=== PATIENT | male | born 1950 | race Caucasian/White ===

== ENCOUNTER 2017-05-06 19:02 | Emergency (ER) | payer MEDICARE, SELFPAY ==
[2017-05-06 19:02] VITALS: BP 155/96; PULSE 78; RESP 16; TEMP 36.9; O2SAT 95; BMI 32.2
--- NOTE | 2017-05-06 19:05 | RAD_ITS ---
STUDY: X-RAY - RIGHT ANKLE REASON FOR EXAM: Male, 66 years old. Lateral pain TECHNIQUE: 3 view(s) of the ankle. COMPARISON: None. FINDINGS: Normal visualized distal tibia and fibula. Normal medial and lateral malleoli. Normal tibiotalar articulation and ankle mortise. Normal visualized talus. There is spurring of the calcaneus. The visualized subtalar, talonavicular, calcaneocuboid and tarsal articulations are normal. The soft tissue structures are unremarkable. RAD/Ankle min 3 Views IMPRESSION: No evidence for acute fracture or dislocation Electronically Signed: Royer Whelan MD at 20:06 EST , Service support ,
--- NOTE | 2017-05-06 20:03 | ED.VISSUMM ---
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 He reports that he has right ankle pain that began today at approximately noon. Is a sharp pain is 10 out of 10 at worst 9 out of 10 currently. Is worsened by walking periods relieved by rest. Is not taking anything for this. He denies any paresthesias or weakness. He denies any trauma. No fall, MVA, or change in activity. Reports that he had a similar symptoms years ago and got a shot that popped something in the pain went away. Physical Examination: Vitals: Stable. Afebrile. General: Well-nourished and well-developed. Head: Normocephalic atraumatic. Neck: Supple, no lymphadenopathy. No JVD. Nontender. Cardiovascular: Regular rate and rhythm. No murmurs. Respiratory: No respiratory distress. Clear to auscultation bilaterally. Abdominal: Soft, nontender, nondistended, normal bowel sounds. No guarding, rebound, or peritoneal signs. Back: Nontender. Extremities: Mild tenderness palpation over the the medial malleolus. No pain over the lateral malleolus. No pain over the proximal fibula or distal fifth metatarsal. He does have moderate tenderness palpation in the posterior portion of the arch of his right foot as well. He has got a 2+ dorsalis pedis pulse and normal sensation light touch.. Skin: Normal color, no rash. Neurologic: Alert and oriented ?3. Cranial nerves II through XII are intact. Normal strength and sensation. Psych: Normal affect. Test Results: X-ray of his right ankle shows degenerative changes and no acute disease. Emergency Department Course and Treatment: Patient is treated with [place]. He is resting comfortably. Treatment Plan: She will be discharged on [place] and Colace. Instructed to follow Dr. Enriquez in 1 week if not improving. Disposition: To home in improved and stable condition. Impression: 1. Right ankle pain, acute. 2. Right foot pain, acute. This note was generated with [employer] software. It may contain incorrect words, spelling, and punctuation that were not noted in review of the chart prior to signing ED Disposition - Plan for ED Patient: Disposition: Home or Assisted Living Chief Complaint: Lower Extremity Injury Instructions: What Is Arthritis in the Foot? Prescriptions: Hydrocodone Bitart/Apap 5-325 [[place] 5/325] 1 - 2 tablet PO Q4H PRN PRN 3 Days #12 tablet PRN Reason: Pain Docusate Sodium [Colace] 100 mg PO DAILY #20 capsule Referrals: Royer Enriquez DPM [STAFF PHYSICIAN] - 3-5 Days if not improving
--- NOTE | 2017-05-06 20:06 | ED.DCSUM_ITS ---
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 He reports that he has right ankle pain that began today at approximately noon. Is a sharp pain is 10 out of 10 at worst 9 out of 10 currently. Is worsened by walking periods relieved by rest. Is not taking anything for this. He denies any paresthesias or weakness. He denies any trauma. No fall, MVA, or change in activity. Reports that he had a similar symptoms years ago and got a shot that popped something in the pain went away. Physical Examination: Vitals: Stable. Afebrile. General: Well-nourished and well-developed. Head: Normocephalic atraumatic. Neck: Supple, no lymphadenopathy. No JVD. Nontender. Cardiovascular: Regular rate and rhythm. No murmurs. Respiratory: No respiratory distress. Clear to auscultation bilaterally. Abdominal: Soft, nontender, nondistended, normal bowel sounds. No guarding, rebound, or peritoneal signs. Back: Nontender. Extremities: Mild tenderness palpation over the the medial malleolus. No pain over the lateral malleolus. No pain over the proximal fibula or distal fifth metatarsal. He does have moderate tenderness palpation in the posterior portion of the arch of his right foot as well. He has got a 2+ dorsalis pedis pulse and normal sensation light touch.. Skin: Normal color, no rash. Neurologic: Alert and oriented ?3. Cranial nerves II through XII are intact. Normal strength and sensation. Psych: Normal affect. Test Results: X-ray of his right ankle shows degenerative changes and no acute disease. Emergency Department Course and Treatment: Patient is treated with [place]. He is resting comfortably. Treatment Plan: She will be discharged on [place] and Colace. Instructed to follow Dr. Enriquez in 1 week if not improving. Disposition: To home in improved and stable condition. Impression: 1. Right ankle pain, acute. 2. Right foot pain, acute. This note was generated with [employer] software. It may contain incorrect words, spelling, and punctuation that were not noted in review of the chart prior to signing ED Disposition - Plan for ED Patient: Disposition: Home or Assisted Living Chief Complaint: Lower Extremity Injury Instructions: What Is Arthritis in the Foot? Prescriptions: Hydrocodone Bitart/Apap 5-325 [[place] 5/325] 1 - 2 tablet PO Q4H PRN PRN 3 Days # 12 tablet PRN Reason: Pain Docusate Sodium [Colace] 100 mg PO DAILY #20 capsule Referrals: Royer Enriquez DPM [STAFF PHYSICIAN] - 3-5 Days if not improving
[2017-05-06] MEDS: HYDROcodone Bitartrate/Apap 5/325 Tablet PO (20:21)
[2017-05-06 20:24] VITALS: RESP 18
== END 2017-05-06 20:41 | disposition home or self-care (01) ==
LOC: ED 20:29
PROVIDERS: Emergency Provider Emergency Medicine; Family Provider Family Medicine; PCP Family Medicine
DX: M25.571 Pain in right ankle and joints of right foot (principal); I25.10 Atherosclerotic heart disease of native coronary artery without angina pectoris; I10 Essential (primary) hypertension; E78.00 Pure hypercholesterolemia, unspecified; E11.9 Type 2 diabetes mellitus without complications; Z79.84 Long term (current) use of oral hypoglycemic drugs; Z79.82 Long term (current) use of aspirin; Z79.899 Other long term (current) drug therapy
CPT/HCPCS: 73610; 99282

== ENCOUNTER 2019-07-20 15:28 | Observation (INO) | payer MEDICARE, SELFPAY ==
[2019-07-20] VITALS (7 sets, daily range): BP systolic 116–153; BP diastolic 66–95; PULSE 65–75; RESP 11–17; TEMP 36.4–36.8; O2SAT 94–98; BMI 35.9; BMI 33.5; BMI 33.6
--- NOTE | 2019-07-20 15:58 | EKG12_ITS ---
Test Reason : CP Blood Pressure : / mmHG Vent. Rate : 074 BPM Atrial Rate : 074 BPM P-R Int : 170 ms QRS Dur : 084 ms QT Int : 384 ms P-R-T Axes : 006 -15 015 degrees QTc Int : 426 ms Normal sinus rhythm Septal infarct , age undetermined Abnormal ECG Confirmed by PALOMA NAVA, SARA ([id number]), metropolitan editor MAY GAUTAM ([id number] on 07/23/2019 3:53:00 PM Referred By: CARLYN Confirmed By:SARA DOW MD
--- NOTE | 2019-07-20 16:04 | ED.DCSUM_ITS ---
- ER Visit Summary Date of Service: 07/20/19 Chief Complaint: Chest pain History of Present Illness: The patient is a 68 M presenting with chest pain started approximately 2 hours prior to arrival. Pain has been intermittent. This started with exertion while at work. He denies shortness of breath. He st ates at worst it is moderate currently it is 0 out of 10. He denies fever or cough. He has history of previous 7 stents. He states he is unsure when the last stent was, states it was several years ago. He has a history of diabetes, hypertension, hypercholesterolemia. He is a previous smoker. Physical Examination: Vitals are stable. Patient is afebrile. Alert no acute d istress. HEENT exam is unremarkable. Neck is supple. Lungs are clear and equal bilaterally. Heart is regular rate and rhythm. Abdomen is soft nontender nondistended. Extremities are unremarkable. Skin is warm and dry. No focal neurologic deficit. Remainder of exam is unremarkable. Emergency Department Course and Treatment: Patient was given aspirin on arrival. EKG is sinus rhythm rate of 74 with no acute ischemic changes. CBC unremarkable other than platelet 119, this is his baseline. Chemistries unremarkable. Troponin is negative. Patient remains pain-free on reevaluation. Discussed with the hospitalist for observation. Disposition: Observation Impression: Chest pain This note was generated with [employer] dictation software. It may contain incorrect words, spelling, and punctuation that were not noted in review of the chart prior to signing ED Disposition - Plan for ED Patient: Referrals: Royer Shaffer MD [Primary Care Provider] -
[2019-07-20] MEDS: Aspirin 81 MG TAB.CHEW 324 MG PO (16:12)
[2019-07-20 16:25] LABS: Absolute Lymphocyte Count 4.04 X10^3/uL (0.83-4.51); Basophil# 0.05 X10^3/uL; Basophil% 0.5 % (0-1); Eosinophil# 0.21 X10^3/uL; Eosinophils% 2.1 % (0-5); Hematocrit 42.6 % (40-54); Hemoglobin 14.1 g/dL (13.0-16.5); Lymphocyte # 4.04 X10^3/ul (4.0); Lymphocyte % 40.3 % (19-41); Mean Corp Hgb Conc 33.1 g/dL (32-36); Mean Corpuscular Hgb 29.1 pg (27.0-32.0); Mean Platelet Vol. 10.8 fl (6.2-12.0); Monocyte# 0.64 X10^3/uL; Monocyte% 6.4 % (0-10); NRBC Flagged by Analyzer 0 % (0-5); Neutrophil # 5.04 X10^3/uL (2.7-7.7); Neutrophil % 50.3 % (47-70); Platelet Count 119 K/mm3 (150-450); RBC Distribution Width CV 13.6 % (11.6-14.6); RBC Distribution Width SD 43.6 fl (35.1-43.9); Red Blood Count 4.84 M/mm3 (4.6-6.2)
[2019-07-20 16:38] LABS: Anion Gap 6 (5-15); BUN 22 mg/dL (7-18); BUN/Creat Ratio 23.7 RATIO (10-20); Calcium,Total 8.9 mg/dL (8.5-10.1); Chloride 107 mmol/L (98-107); Creatinine, Serum 0.93 mg/dL (0.70-1.30); EST Glomerular Filtration Rate 86 mL/min (>60); Est Glom Filt Rate - Afr Amer 103 mL/min (>60); Estimated Creatinine Clearance 62.77 ml/min; Glucose 79 mg/dL (74-106); Potassium 4.1 mmol/L (3.5-5.1); Sodium Level 140 mmol/L (136-145)
--- NOTE | 2019-07-20 17:17 | RAD_ITS ---
STUDY: X-RAY CHEST REASON FOR EXAM: Male, 68 years old. Chest pain TECHNIQUE: Single AP portable view of the chest. COMPARISON: 12/23/2016 FINDINGS: EKG leads overlie the chest The lungs are clear and expanded. There is no demonstrated pleural abnormality. Normal size heart. Normal mediastinum and nati. Normal visualized pulmonary arteries. Normal visualized aortic arch and descending thoracic aorta. Normal visualized thoracic spine. Normal visualized ribs, clavicles, and shoulders. There is no demonstrated abnormality of the visualized soft tissue structures of the upper abdomen. RAD/Chest 1 View (Portable) IMPRESSION: No acute pulmonary process Electronically Signed: Bryant Charles MD at 17:42 EDT , Service support ,
--- NOTE | 2019-07-20 18:14 | PCM.HP.STD ---
<Juaquin Manley - Last Filed: 07/20/19 18:14> Problem List (1) Chest pain Status: Acute (2) Coronary artery disease Status: Chronic Comment: Status post 4 stent placement, in 2009, following at [facility] (3) Hyperlipidemia Status: Chronic (4) Hypertension Status: Chronic (5) Obesity Status: Chronic History of Present Illness Date of Admission: 07/20/19 Chief Complaint: chest pain The patient is a 68 year old M with pmhx of CAD with 7 prior stents, former patient of Dr. Marcial, hx Dmt2, HTN, HLD, obesity, former smoker, who presented to the ER with c/o chest pain. The patient has been in his normal state of health, but today at work at approximately 1400 he developed a left sided chest pain that he described as stinging pain under his ribs. 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 He had no associated SOB, nausea, diaphoresis, radiation of the pain, or lightheadedness. The pain has continued since then. He thought it may be heartburn at first but states this feels different than heartburn in the past. The pain waxes and wanes, currently he has a small amount of pain. He has not had a stress test or heart cath in several years. He states he still follows cardiology with [facility] but is not sure who with. He denies recent illness/infection - no fever/chills/cough/sinusitis/rhinitis.[] Past Medical History Past Medical History (Chronic Problems): Chronic Problems Obesity (Chronic) Hypertension (Chronic) Hyperlipidemia (Chronic) Coronary artery disease (Chronic) Status post 4 stent placement, in 2009, following at [facility] Allergies aluminum hydroxide [From Mylanta] Allergy (Verified 07/20/19 15:28) Unknown calcium carbonate [From Mylanta] Allergy (Verified 07/20/19 15:28) Unknown magnesium carbonate [From Mylanta] Allergy (Verified 07/20/19 15:28) Unknown magnesium hydroxide [From Mylanta] Allergy (Verified 07/20/19 15:28) Unknown simethicone [From Mylanta] Allergy (Verified 07/20/19 15:28) Unknown Home Medications: Ambulatory Orders Medication Instructions Recorded Aspirin [Aspirin, Baby] 81 mg PO BID 03/16/14 Losartan Potassium [Cozaar] 50 mg PO DAILY 03/16/14 Atorvastatin Calcium [Lipitor] 80 mg PO QHS 06/11/16 Carvedilol [Coreg (Beta Rossana)] 6.25 mg PO BID 06/11/16 Omeprazole [Prilosec] 40 mg PO DAILY 06/11/16 metFORMIN HCl [Glucophage] 1,000 mg PO DAILY 06/11/16 Dulaglutide [Trulicity] 0.75 mg SQ TU 07/20/19 Gabapentin [Neurontin] 300 mg PO QHS 07/20/19 Glimepiride [Amaryl] 8 mg PO DAILY 07/20/19 Surgical History: no surgical history, noncontributory, - Psychiatric History: No pertinent psych hx Lives: Alone Smoking Status: Former smoker Tobacco Use: Non-smoker Alcohol: None Drugs: None - *Family History Maternal History Items: No pertinent history - denies cancer heart disease or stroke Paternal History Items: No pertinent history - denies cancer, heart dz, stroke Review of Systems Constitutional: Denies: Chills, Fever, Weight Change HEENT: Denies: Head Aches, Sinus Congestion, Sinus Drainage Cardiovascular: Denies: Chest Pain, Palpitations Respiratory: Denies: Cough, Shortness of breath at rest, Sputum production Gastrointestinal: Denies: Abdominal Pain, Nausea, Vomiting Genitourinary: Denies: Dysuria Musculoskeletal: Denies: Joint Pain, Joint Tenderness Skin: Denies: Rash, Wounds Neurological: Denies: Numbness, Tingling, Focal weakness Psychiatric: Denies: Anxiety, Depression, Homicidal Ideations, Suicidal Ideations Hematologic/ Lymphatic: Denies: Easy Bruising, Easy Bleeding VTE Information - Inpt Only VTE Present on Admission: No VTE Mechan Device Prophylaxis: None VTE Pharm Prophylaxis ordered?: Yes - Physical Exam Vitals/I&O's: Vital Signs Temp Pulse Resp BP Pulse Ox 97.8 F 67 11 L 116/90 H 96 07/20/19 15:29 07/20/19 17:18 07/20/19 17:18 07/20/19 17:18 07/20/19 17:18 Oxygen Delivery Method Room Air Weight: 208 lb 15.971 oz Body Mass Index (BMI) 35.9 General: Alert, Oriented x3, Cooperative HEENT: Atraumatic, PERRLA, EOMI, Normocephalic Neck: Supple, No JVD, Negative Carotid Bruits Lungs: Clear to auscultation, Normal air movement Cardiovascular: Regular rate, No murmurs Abdomen: Bowel Sounds Present, Soft, Non Tender, Obese Extremities: No edema, Capillary Refill Less than 3 Seconds Skin: No rashes, No breakdown Musculoskeletal: No Tenderness to Palpation of Joints or Extremities Neurological: Cranial nerves II-XII grossly intact Psych/Mental Status: Normal Affect, Appropriate, Alert and oriented to time, place, person, mood and affect Laboratory Results 07/20/19 16:05: WBC 10.0, RBC 4.84, Hgb 14.1, Hct 42.6, MCV 88.0, MCH 29.1, MCHC 33.1, RDW Std Deviation 43.6, RDW Coeff of Monica 13.6, Plt Count 119 L, MPV 10.8, Immature Gran % (Auto) 0.400, Neut % (Auto) 50.3, Lymph % (Auto) 40.3, Bucks % (Auto) 6.4, Eos % (Auto) 2.1, Baso % (Auto) 0.5, Absolute Neuts (auto) 5.0, Absolute Lymphs (auto) 4.04, Nucleated RBC % 0 07/20/19 16:05: Sodium 140, Potassium 4.1, Chloride 107, Carbon Dioxide 27.0, Anion Gap 6, BUN 22 H, Creatinine 0.93, Estim Creat Clear Calc 62.77, Est GFR (MDRD) Af Amer 103, Est GFR (MDRD) Non-Af 86, BUN/Creatinine Ratio 23.7 H, Glucose 79, Calcium 8.9, Troponin I < 0.015 Assessment/Plan All Active Problems Chest pain (Acute) Vertigo (Acute) 1. Chest pain in the setting of CAD with 7 prior stents - pain is atypical. Trop neg. CXR neg. EKG NSR no acute changes. Cycle enzymes, maintain on tele, repeat AM EKG, and stress test in AM. Continue asa/statin/losartan/coreg 2. HTN - controlled in ER. 3. HLD - on max statin therapy 4. DMt2 - recently started insulin therapy. need to confirm home regimen. SSI overnight, hold metformin 5. GERD - on PPI, continue 6. Hx BPPV - no dizziness today. prn meclizine DVT ppx: lovenox This patient was seen by Juaquin Manley PA-C under the supervision of Dr. Angulo. <Tommy Angulo - Last Filed: 07/20/19 18:31> Problem List (1) Chest pain Status: Acute (2) Obesity Status: Chronic (3) Vertigo Status: Acute (4) Hypertension Status: Chronic (5) Hyperlipidemia Status: Chronic (6) Coronary artery disease Status: Chronic Comment: Status post 4 stent placement, in 2009, following at [facility] History of Present Illness This 68-year-old patient woman with history of coronary artery disease status post 7 stents admitted with chest pain. 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 Patient still has chest pain although it has gotten better. Denies associated shortness of breath, diaphoresis, near-syncope or syncope. Patient had a stress test and cardiac cath more than 2 or 3 years ago. It seems patient follows [facility] cardiology. EKG in the ER shows normal sinus rhythm at 74 bpm, IN interval 170 ms with no significant ST-T changes. QTc interval 426 ms. Previous EKG in December 2016 is similar with normal sinus rhythm. [] Past Medical History Allergies aluminum hydroxide [From Mylanta] Allergy (Verified 07/20/19 15:28) Unknown calcium carbonate [From Mylanta] Allergy (Verified 07/20/19 15:28) Unknown magnesium carbonate [From Mylanta] Allergy (Verified 07/20/19 15:28) Unknown magnesium hydroxide [From Mylanta] Allergy (Verified 07/20/19 15:28) Unknown simethicone [From Mylanta] Allergy (Verified 07/20/19 15:28) Unknown Review of Systems Constitutional: Denies: Chills, Fever, Weight Change HEENT: Denies: Head Aches, Sinus Congestion, Sinus Drainage Cardiovascular: Reports: Chest Pain. Denies: Palpitations Respiratory: Denies: Cough, Shortness of breath at rest, Sputum production Gastrointestinal: Denies: Abdominal Pain, Nausea, Vomiting Genitourinary: Denies: Dysuria Musculoskeletal: Denies: Joint Pain, Joint Tenderness Skin: Denies: Rash, Wounds Neurological: Denies: Numbness, Tingling, Focal weakness Psychiatric: Denies: Anxiety, Depression, Homicidal Ideations, Suicidal Ideations Hematologic/ Lymphatic: Denies: Easy Bruising, Easy Bleeding - Physical Exam Vitals/I&O's: Vital Signs Temp Pulse Resp BP Pulse Ox 97.8 F 67 11 L 116/90 H 96 07/20/19 15:29 07/20/19 17:18 07/20/19 17:18 07/20/19 17:18 07/20/19 17:18 Oxygen Delivery Method Room Air Weight: 208 lb 15.971 oz Body Mass Index (BMI) 35.9 General: Alert, Oriented x3, Cooperative HEENT: Atraumatic, PERRLA, EOMI, Normocephalic Neck: Supple, No JVD, Negative Carotid Bruits Lungs: Clear to auscultation, No rhonchi, No wheeze, No rales, Diminished Cardiovascular: Regular rate, No murmurs Abdomen: Bowel Sounds Present, Soft, Non Tender, Non-Distended, No Hepato-splenomegaly, Obese Extremities: No edema, Capillary Refill Less than 3 Seconds Skin: No rashes, No breakdown Musculoskeletal: No Tenderness to Palpation of Joints or Extremities, Arthritic Changes Neurological: Cranial nerves II-XII grossly intact, Deep Tendon Reflexes 2+/4 and Symmetrical, Neuro grossly intact, Motor Exam 5/5 strength throughout Psych/Mental Status: Normal Affect, Appropriate Laboratory Results 07/20/19 16:05: WBC 10.0, RBC 4.84, Hgb 14.1, Hct 42.6, MCV 88.0, MCH 29.1, MCHC 33.1, RDW Std Deviation 43.6, RDW Coeff of Monica 13.6, Plt Count 119 L, MPV 10.8, Immature Gran % (Auto) 0.400, Neut % (Auto) 50.3, Lymph % (Auto) 40.3, Bucks % (Auto) 6.4, Eos % (Auto) 2.1, Baso % (Auto) 0.5, Absolute Neuts (auto) 5.0, Absolute Lymphs (auto) 4.04, Nucleated RBC % 0 07/20/19 16:05: Sodium 140, Potassium 4.1, Chloride 107, Carbon Dioxide 27.0, Anion Gap 6, BUN 22 H, Creatinine 0.93, Estim Creat Clear Calc 62.77, Est GFR (MDRD) Af Amer 103, Est GFR (MDRD) Non-Af 86, BUN/Creatinine Ratio 23.7 H, Glucose 79, Calcium 8.9, Troponin I < 0.015 Assessment/Plan This patient was seen in conjunction with Juaquin DUARTE. I have independently interviewed and examined the patient and reviewed pertinent history, examination findings, laboratory and plan of management. I have reviewed the note and agree with the documented findings with the few additional points. 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 EKG nonspecific ST-T changes. Troponin negative. Chest x-ray no acute pulmonary process. Cycle serial troponin enzymes. Repeat EKG. If troponins negative, treadmill nuclear stress test tomorrow a.m. If positive or EKG change, will consult cardiology for cardiac cath. Diabetes mellitus type 2 with diabetic neuropathy: Patient is on Trulicity and every . Continue insulin and Neurontin. Continue aspirin, statin, losartan and Coreg. Other comorbidities as mentioned above I have discussed my assessment with Juaquin DUARTE and orders have been reviewed. OBSV E&M: [id number] Initial observation care L3
--- NOTE | 2019-07-20 19:19 | EKG12_ITS ---
Test Reason : CP ADMIT Blood Pressure : / mmHG Vent. Rate : 066 BPM Atrial Rate : 066 BPM P-R Int : 180 ms QRS Dur : 092 ms QT Int : 414 ms P-R-T Axes : 003 -02 041 degrees QTc Int : 434 ms Normal sinus rhythm Normal ECG Confirmed by PALOMA NAVA, SARA ([id number]), business editor MAY GAUTAM ([id number] on 07/23/2019 4:03:31 PM Referred By: DR PAIZ Confirmed By:SARA DOW MD
--- NOTE | 2019-07-20 19:28 | NURSING ---
Pt states flu shot a couple of years ago. Denies having a PNA shot.
[2019-07-20] MEDS: 0.9% Normal Saline 1,000 ML 75 ML IV (19:58)
[2019-07-20] MEDS: 0.9% Saline Lock 10 ML Syringe IV (19:58)
[2019-07-20] MEDS: Enoxaparin 40 MG/0.4 ML Syringe SC (20:00)
[2019-07-20] MEDS: Pantoprazole Sodium 40 MG Tablet PO (20:00)
[2019-07-20] MEDS: Carvedilol 6.25 MG Tablet PO (22:32)
[2019-07-20] MEDS: Atorvastatin Calcium 80 MG Tablet PO (22:32)
[2019-07-21 03:03] VITALS: PULSE 59
[2019-07-21 04:46] VITALS: BP 131/80; PULSE 62; RESP 11; TEMP 36.4; O2SAT 95
[2019-07-21] MEDS: Losartan Potassium 50 MG Tablet PO (05:00)
[2019-07-21] MEDS: Aspirin E.C. 81 MG Tablet PO (05:00)
--- NOTE | 2019-07-21 05:55 | EKG12_ITS ---
Test Reason : AM EKG Blood Pressure : / mmHG Vent. Rate : 061 BPM Atrial Rate : 061 BPM P-R Int : 186 ms QRS Dur : 082 ms QT Int : 428 ms P-R-T Axes : -08 000 043 degrees QTc Int : 430 ms Normal sinus rhythm Normal ECG Confirmed by PALOMA NAVA, SARA ([id number]), magazine editor MAY GAUTAM ([id number]) on 07/23/2019 4:14:50 PM Referred By: DR PAIZ Confirmed By:SARA DOW MD
[2019-07-21 07:00] VITALS: PULSE 61
[2019-07-21 07:36] LABS: Anion Gap 4 (5-15); BUN 16 mg/dL (7-18); BUN/Creat Ratio 19.9 RATIO (10-20); Calcium,Total 8.6 mg/dL (8.5-10.1); Chloride 109 mmol/L (98-107); Cholesterol 82 mg/dL (200); EST Glomerular Filtration Rate 101 mL/min (>60); Est Glom Filt Rate - Afr Amer 122 mL/min (>60); Estimated Creatinine Clearance 78.64 ml/min; Glucose 89 mg/dL (74-106); High Density Lipoprotein 27 mg/dL; Sodium Level 141 mmol/L (136-145); Thyroid Stim Hormone (TSH) 3.34 uIU/mL (0.358-3.74); Triglycerides 162 mg/dL; Very Low Density Lipoprotein 32 mg/dL (5-40)
[2019-07-21 09:13] VITALS: O2SAT 95
--- NOTE | 2019-07-21 11:43 | STRESSREP_ITS ---
Stress Test Report Date: 07-21-2019 Procedure: Exercise tolerance test/imaging study Indications: Chest pain; CAD; PCI Consent: Per the patient Procedure: The patient exercised on a Jon protocol for 5 minutes and 47 seconds completing Stage I and 2 minutes and 47 seconds of Stage II achieving a peak heart rate of 127 bpm (84 % predicted maximal heart rate) with a peak blood pressure 180/96 mmHg and a peak MET capacity of 7 METs. The baseline ECG demonstrated normal sinus rhythm to my: Poor R wave progression. The peak exercise ECG demonstrated no obvious ECG changes. [There were no cardiac dysrhythmias pretest, during exercise, or recovery]. The functional capacity was considered average. There was [no complaint of chest discomfort during exercise or recovery]. The examination was discontinued secondary to dyspnea and leg discomfort. Impression: 1. Technically adequate (percent predicted maximal heart rate greater than 85%) exercise tolerance test 2. Peak exercise ECG with no obvious ECG changes 3. [There were no cardiac dysrhythmias pretest, during exercise, or recovery] 4. Nuclear images pending Myocardial perfusion imaging study: Technique: The patient was injected with 12.0 mCi of technetium 99m Cardiolite and subsequently rest SPECT Cardiolite nuclear imaging was obtained in the horizontal long, vertical long, and short axis views. The patient exercised on a Jon protocol for 5 minutes and 47 seconds completing Stage I and 2 minutes and 47 seconds of Stage II achieving a peak heart rate of 127 bpm (84 % predicted maximal heart rate) with a peak blood pressure 180/96 mmHg and a peak MET capacity of 7 METs. The patient was injected with 36.0 mCi of technetium 99m Cardiolite and subsequently stress SPECT Cardiolite nuclear imaging was obtained in the horizontal long, vertical long, and short axis views. A gated Cardiolite study at peak stress was obtained. Interpretation: Rest and stress SPECT Cardiolite nuclear imaging status post realignment, normalization, and attenuation correction, demonstrates an area of diminished absence of myocardial perfusion/tracer uptake in portions of the basal towards mid interventricular septum without significant change between rest and stress. [There is end systolic thickening and brightening]. The gated Cardiolite study demonstrates [myocardial thickening and inward wall motion]. The reported LVEF is 60 %. Impression: 1. Rest and stress SPECT Cardiolite nuclear imaging demonstrate an area of diminished absence of myocardial perfusion/tracer uptake in portions of the basal towards mid interventricular septum without significant change between rest and stress appearing potentially compatible with an area of previous myocardial injury/infarction with no myocardial perfusion changes considered compatible with associated stress-induced myocardial ischemia. 2. The gated Cardiolite study reports an LVEF of 60 %. This note was generated with [employer] software. It may contain incorrect words, spelling, and punctuation that were not noted in checking the note before signing.
--- NOTE | 2019-07-21 12:50 | DCINST_ITS ---
- Discharge Diagnoses Current Active Problems: Current Active and Chronic Problems Obesity (Chronic) You will use the following diet at home:: Cardiac Your food should be the consistency of: Regular Your liquids should be the consistency of: Regular/Thin Discharge Activity: Return to Normal Activity Allergies/Adverse Reactions: Allergies aluminum hydroxide [From Mylanta] Allergy (Verified 07/20/19 15:28) Unknown calcium carbonate [From Mylanta] Allergy (Verified 07/20/19 15:28) Unknown magnesium carbonate [From Mylanta] Allergy (Verified 07/20/19 15:28) Unknown magnesium hydroxide [From Mylanta] Allergy (Verified 07/20/19 15:28) Unknown simethicone [From Mylanta] Allergy (Verified 07/20/19 15:28) Unknown Medications to take at Discharge Aspirin [Aspirin, Baby] 81 mg PO BID 03/16/14 Losartan Potassium [Cozaar] 50 mg PO DAILY 03/16/14 Atorvastatin Calcium [Lipitor] 80 mg PO QHS 06/11/16 Carvedilol [Coreg (Beta Rossana)] 6.25 mg PO BID 06/11/16 Omeprazole [Prilosec] 40 mg PO DAILY 06/11/16 metFORMIN HCl [Glucophage] 1,000 mg PO DAILY 06/11/16 Dulaglutide [Trulicity] 0.75 mg SQ TU 07/20/19 Gabapentin [Neurontin] 300 mg PO QHS 07/20/19 Glimepiride [Amaryl] 8 mg PO DAILY 07/20/19 Acetaminophen [Tylenol Tablet] 650 mg PO Q6H PRN PRN tablet 07/21/19 Primary Care Physician: Royer Shaffer MD [Primary Care Provider] - Please follow up with your Primary Care Physician in: 1-2 weeks Test Results: Test results from this visit will be discussed in further detail at your follow- up appointment, if applicable. Please Follow Up With: Cardiology - Your own When: 3-4 weeks Proposed Discharge Date: 07/21/19
--- NOTE | 2019-07-21 12:51 | DS.PCM_ITS ---
<Juaquin Manley - Last Filed: 07/21/19 12:51> Discharge Date and Diagnosis Date of Admission: 07/20/19 Date of Discharge: 07/21/19 - Primary Discharge Diagnosis Chest pain, atypical, musculoskeletal Hx CAD, 7 stents HLD HTN Obesity - Secondary Discharge Diagnosis Chronic Problems Obesity (Chronic) Hypertension (Chronic) Hyperlipidemia (Chronic) Coronary artery disease (Chronic) Status post 4 stent placement, in 2009, following at [facility] Hospital Course and Treatment Imaging Results: 07/21/19 05:55 Nuclear Stress Test - Treadmil [NM] AM (NON MEDS) Impression: 1. Rest and stress SPECT Cardiolite nuclear imaging demonstrate an area of diminished absence of myocardial perfusion/tracer uptake in portions of the basal towards mid interventricular septum without significant change between rest and stress appearing potentially compatible with an area of previous myocardial injury/infarction with no myocardial perfusion changes considered compatible with associated stress-induced myocardial ischemia. 2. The gated Cardiolite study reports an LVEF of 60 %. RAD/Chest 1 View (Portable) IMPRESSION: No acute pulmonary process Operations: None Procedures: Stress test Summary of Care Provided: Hospital Course: The patient is a 68 year old M with pmhx as above notably CAD with 7 prior stents, pt of [facility] cardiology, who presented to the ER with chest pain. The patient had sudden onset of pain described as stinging under the ribs on the left side. He had no associated symptoms and no aggravating/alleviating factors. The pain was constant but waxed and waned in intensity. He came to the ER and had negative cxr, negative troponin, and negative EKG. He was admitted for chest pain workup. No events on tele. Trop negx3. Stress test the following day was negative. He was discharged home in stable condition. 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 This patient was seen by Juaquin Manley PA-C under the supervision of Dr. Angulo. [] - Physical Exam Vitals/I&O's: Vital Signs Temp Pulse Resp BP Pulse Ox 97.6 F L 61 11 L 131/80 H 95 07/21/19 04:46 07/21/19 07:00 07/21/19 04:46 07/21/19 04:46 07/21/19 09:13 Oxygen Delivery Method Room Air Weight: 207 lb 14.334 oz Body Mass Index (BMI) 33.5 Intake and Output for Last 24 Hours 07/19/19 07/20/19 07/21/19 23:59 23:59 23:59 Intake Total 370 / 370 1040 / 1040 Balance 370 / 370 1040 / 1040 General: Alert, Oriented x3, Cooperative HEENT: Atraumatic, PERRLA, EOMI, Normocephalic Neck: Supple, No JVD, Negative Carotid Bruits Lungs: Clear to auscultation, Normal air movement Cardiovascular: Regular rate, No murmurs Abdomen: Bowel Sounds Present, Soft, Non Tender, Obese Extremities: No edema, Capillary Refill Less than 3 Seconds Skin: No rashes, No breakdown Musculoskeletal: No Tenderness to Palpation of Joints or Extremities Neurological: Cranial nerves II-XII grossly intact Psych/Mental Status: Normal Affect, Appropriate, Alert and oriented to time, place, person, mood and affect Laboratory Results 07/20/19 16:05: WBC 10.0, RBC 4.84, Hgb 14.1, Hct 42.6, MCV 88.0, MCH 29.1, MCHC 33.1, RDW Std Deviation 43.6, RDW Coeff of Monica 13.6, Plt Count 119 L, MPV 10.8, Immature Gran % (Auto) 0.400, Neut % (Auto) 50.3, Lymph % (Auto) 40.3, [place] % (Auto) 6.4, Eos % (Auto) 2.1, Baso % (Auto) 0.5, Absolute Neuts (auto) 5.0, Absolute Lymphs (auto) 4.04, Nucleated RBC % 0 07/20/19 16:05: Sodium 140, Potassium 4.1, Chloride 107, Carbon Dioxide 27.0, Anion Gap 6, BUN 22 H, Creatinine 0.93, Estim Creat Clear Calc 62.77, Est GFR (MDRD) Af Amer 103, Est GFR (MDRD) Non-Af 86, BUN/Creatinine Ratio 23.7 H, Glucose 79, Calcium 8.9, Troponin I < 0.015 07/20/19 19:35: Troponin I < 0.015 07/20/19 22:12: Troponin I < 0.015 07/21/19 06:32: Sodium 141, Potassium 4.0, Chloride 109 H, Carbon Dioxide 28.0, Anion Gap 4 L, BUN 16, Creatinine 0.80, Estim Creat Clear Calc 78.64, Est GFR (MDRD) Af Amer 122, Est GFR (MDRD) Non-Af 101, BUN/Creatinine Ratio 19.9, Glucose 89, Calcium 8.6, Triglycerides 162, Cholesterol 82, LDL Cholesterol 23, VLDL Cholesterol 32, HDL Cholesterol 27 L, TSH 3.34 Current Medications Acetaminophen (Tylenol) 650 mg PO Q6H PRN PRN PRN Reason: Pain Score 1-10/Temp > 100.7 F Albuterol Sulfate (Ventolin Aerosols) 2.5 mg INHALATION Q2H PRN PRN PRN Reason: SOB/Wheezing Aspirin (Ecotrin) 81 mg PO DAILY@0800 [facility] Last Admin: 07/21/19 05:00 Dose: 81 mg Documented by: Atorvastatin Calcium (Lipitor) 80 mg PO QHS [facility] Last Admin: 07/20/19 22:32 Dose: 80 mg Documented by: Carvedilol (Coreg) 6.25 mg PO BID [facility] Last Admin: 07/20/19 22:32 Dose: 6.25 mg Documented by: Dextrose (D50w Syringe) 0 gm IV X1 PRN; Protocol PRN Reason: Hypoglycemia Enoxaparin Sodium (Lovenox) 40 mg SC DAILY [facility] Last Admin: 07/20/19 20:00 Dose: 40 mg Documented by: Glucagon () 1 mg IM .X1 PRN PRN Reason: Hypoglycemia Hydrochlorothiazide (Hctz) 25 mg PO DAILY [facility] Sodium Chloride () 250 mls @ 15 mls/hr IV .[id number] PRN PRN Reason: Saline Flush Sodium Chloride () 250 mls @ 15 mls/hr IV .[id number] PRN PRN Reason: Additional IVPB Infusion Losartan Potassium (Cozaar) 50 mg PO DAILY [facility] Last Admin: 07/21/19 05:00 Dose: 50 mg Documented by: Morphine Sulfate () 2 mg IV Q3H PRN PRN PRN Reason: Pain Score 6-10/10 Nitroglycerin (Nitrostat) 0.4 mg SUBLINGUAL Q5M PRN PRN Reason: CARDIAC/CHEST PAIN Oxycodone HCl (Oxyir) 5 mg PO Q4H PRN PRN PRN Reason: Pain Score 4-5/10 Pantoprazole Sodium (Protonix) 40 mg PO DAILY [facility] Last Admin: 07/20/19 20:00 Dose: 40 mg Documented by: Prochlorperazine Edisylate (Compazine Iv) 5 mg IV Q4H PRN PRN PRN Reason: Breakthrough Nausea/Vomiting Senna/Docusate Sodium (Senokot-S, Cheryl-Colace) 2 tablet PO BID PRN PRN PRN Reason: Constipation Sodium Chloride () 10 - 40 ml IV UD PRN PRN Reason: SALINE FLUSH Last Admin: 07/20/19 19:58 Dose: 10 ml Documented by: Discharge Diet: Low fat/ Low Cholesterol, 2000 mg Sodium Diet Discharge Activity: Return to Normal Activity Home Medications: Medications to take at Discharge Aspirin [Aspirin, Baby] 81 mg PO BID 03/16/14 Losartan Potassium [Cozaar] 50 mg PO DAILY 03/16/14 Atorvastatin Calcium [Lipitor] 80 mg PO QHS 06/11/16 Carvedilol [Coreg (Beta Rossana)] 6.25 mg PO BID 06/11/16 Omeprazole [Prilosec] 40 mg PO DAILY 06/11/16 metFORMIN HCl [Glucophage] 1,000 mg PO DAILY 06/11/16 Dulaglutide [Trulicity] 0.75 mg SQ TU 07/20/19 Gabapentin [Neurontin] 300 mg PO QHS 07/20/19 Glimepiride [Amaryl] 8 mg PO DAILY 07/20/19 Acetaminophen [Tylenol Tablet] 650 mg PO Q6H PRN PRN tab 07/21/19 Primary Care Physician: Royer Shaffre MD [Primary Care Provider] - Please follow up with your Primary Care Physician in: 1-2 weeks Please Follow Up With: Cardiology - Your own When: 3-4 weeks Disposition: Home Minutes spent on discharge:: 35 Patient Condition:: Stable Medical Necessity - Tobacco Use Smoking Status: Former smoker Tobacco Use: Non-smoker Meaningful Use Info Meaningful Use Diagnoses (Choose all that apply): None applicable <Tommy Angulo - Last Filed: 07/21/19 15:32> Discharge Date and Diagnosis - Secondary Discharge Diagnosis Chronic Problems Obesity (Chronic) Hypertension (Chronic) Hyperlipidemia (Chronic) Coronary artery disease (Chronic) Status post 4 stent placement, in 2009, following at [facility] Hospital Course and Treatment Summary of Care Provided: This patient was seen in conjunction with Juaquin DUARTE. I have independently interviewed and examined the patient and reviewed pertinent history, examination findings, laboratory and plan of management. I have reviewed the note and agree with the documented findings with the few additional points. In brief, patient is 68-year-old woman admitted for chest pain. Patient has significant history of coronary artery disease with stents times follows [facility] cardiology. Patient had serial troponin enzymes were negative. Myocardial nuclear perfusion stress test was done and is negative for stress- induced ischemia but has prior myocardial injury from infarct. Blood pressure is slightly elevated but fluctuates, therefore advised to follow with PCP to further titrate the dose of antihypertensive medication. Fasting profile shows LDL 23 and HDL 27. Discharge medication reconciliation done. Discharge follow-up instructions completed. Discharge process discussed with the patient and all questions were answered to patient's satisfaction. Total time spent, exact 35 minutes on discharge meds reconciliation, examination, coordination of care with nurses and ancillary staff, review of imaging and blood test and discussion with the patient on follow-up instructions I have discussed my assessment with Juaquin DUARTE and orders have been reviewed. [] Objective: Patient chest pain resolved yesterday. Serial troponins negative. - Physical Exam Vitals/I&O's: Vital Signs Temp Pulse Resp BP Pulse Ox 97.9 F 79 18 150/90 H 97 07/21/19 13:57 07/21/19 13:57 07/21/19 13:57 07/21/19 13:57 07/21/19 13:57 Oxygen Delivery Method Room Air Weight: 207 lb 14.334 oz Body Mass Index (BMI) 33.5 Intake and Output for Last 24 Hours 07/19/19 07/20/19 07/21/19 23:59 23:59 23:59 Intake Total 370 / 370 1280 / 1280 Balance 370 / 370 1280 / 1280 General: Alert, Oriented x3, Cooperative HEENT: Atraumatic, PERRLA, EOMI, Normocephalic Neck: Supple, No JVD, Negative Carotid Bruits Lungs: Clear to auscultation, Normal air movement Cardiovascular: Regular rate, No murmurs Abdomen: Bowel Sounds Present, Soft, Non Tender, Non-Distended, Obese Extremities: No edema, Capillary Refill Less than 3 Seconds Skin: No rashes, No breakdown Musculoskeletal: No Tenderness to Palpation of Joints or Extremities, Arthritic Changes Neurological: Cranial nerves II-XII grossly intact Psych/Mental Status: Normal Affect, Appropriate Laboratory Results 07/20/19 16:05: WBC 10.0, RBC 4.84, Hgb 14.1, Hct 42.6, MCV 88.0, MCH 29.1, MCHC 33.1, RDW Std Deviation 43.6, RDW Coeff of Monica 13.6, Plt Count 119 L, MPV 10.8, Immature Gran % (Auto) 0.400, Neut % (Auto) 50.3, Lymph % (Auto) 40.3, [place] % (Auto) 6.4, Eos % (Auto) 2.1, Baso % (Auto) 0.5, Absolute Neuts (auto) 5.0, Absolute Lymphs (auto) 4.04, Nucleated RBC % 0 07/20/19 16:05: Sodium 140, Potassium 4.1, Chloride 107, Carbon Dioxide 27.0, Anion Gap 6, BUN 22 H, Creatinine 0.93, Estim Creat Clear Calc 62.77, Est GFR (MDRD) Af Amer 103, Est GFR (MDRD) Non-Af 86, BUN/Creatinine Ratio 23.7 H, Glucose 79, Calcium 8.9, Troponin I < 0.015 07/20/19 19:35: Troponin I < 0.015 07/20/19 22:12: Troponin I < 0.015 07/21/19 06:32: Sodium 141, Potassium 4.0, Chloride 109 H, Carbon Dioxide 28.0, Anion Gap 4 L, BUN 16, Creatinine 0.80, Estim Creat Clear Calc 78.64, Est GFR (MDRD) Af Amer 122, Est GFR (MDRD) Non-Af 101, BUN/Creatinine Ratio 19.9, Gl ucose 89, Calcium 8.6, Triglycerides 162, Cholesterol 82, LDL Cholesterol 23, VLDL Cholesterol 32, HDL Cholesterol 27 L, TSH 3.34 Current Medications Acetaminophen (Tylenol) 650 mg PO Q6H PRN PRN PRN Reason: Pain Score 1-10/Temp > 100.7 F Albuterol Sulfate (Ventolin Aerosols) 2.5 mg INHALATION Q2H PRN PRN PRN Reason: SOB/Wheezing Aspirin (Ecotrin) 81 mg PO DAILY@0800 [facility] Last Admin: 07/21/19 05:00 Dose: 81 mg Documented by: Atorvastatin Calcium (Lipitor) 80 mg PO QHS [facility] Last Admin: 07/20/19 22:32 Dose: 80 mg Documented by: Carvedilol (Coreg) 6.25 mg PO BID [facility] Last Admin: 07/21/19 14:02 Dose: 6.25 mg Documented by: Dextrose (D50w Syringe) 0 gm IV X1 PRN; Protocol PRN Reason: Hypoglycemia Enoxaparin Sodium (Lovenox) 40 mg SC DAILY [facility] Last Admin: 07/21/19 14:02 Dose: 40 mg Documented by: Glucagon () 1 mg IM .X1 PRN PRN Reason: Hypoglycemia Hydrochlorothiazide (Hctz) 25 mg PO DAILY [facility] Last Admin: 07/21/19 14:02 Dose: 25 mg Documented by: Sodium Chloride () 250 mls @ 15 mls/hr IV .[id number] PRN PRN Reason: Saline Flush Sodium Chloride () 250 mls @ 15 mls/hr IV .[id number] PRN PRN Reason: Additional IVPB Infusion Losartan Potassium (Cozaar) 50 mg PO DAILY [facility] Last Admin: 07/21/19 05:00 Dose: 50 mg Documented by: Morphine Sulfate () 2 mg IV Q3H PRN PRN PRN Reason: Pain Score 6-10/10 Nitroglycerin (Nitrostat) 0.4 mg SUBLINGUAL Q5M PRN PRN Reason: CARDIAC/CHEST PAIN Oxycodone HCl (Oxyir) 5 mg PO Q4H PRN PRN PRN Reason: Pain Score 4-5/10 Pantoprazole Sodium (Protonix) 40 mg PO DAILY [facility] Last Admin: 07/21/19 14:02 Dose: 40 mg Documented by: Prochlorperazine Edisylate (Compazine Iv) 5 mg IV Q4H PRN PRN PRN Reason: Breakthrough Nausea/Vomiting Senna/Docusate Sodium (Senokot-S, Cheryl-Colace) 2 tablet PO BID PRN PRN PRN Reason: Constipation Sodium Chloride () 10 - 40 ml IV UD PRN PRN Reason: SALINE FLUSH Last Admin: 07/20/19 19:58 Dose: 10 ml Documented by: OBSV E&M: [id number] Observation care discharge
[2019-07-21 13:55] VITALS: BP 150/90; PULSE 83; RESP 18; TEMP 36.6; O2SAT 97
--- NOTE | 2019-07-21 13:56 | NURSING ---
pt off floor for testing, unable to follow [facility]
[2019-07-21 13:57] VITALS: BP 150/90; PULSE 79; RESP 18; TEMP 36.6; O2SAT 97
[2019-07-21] MEDS: Enoxaparin 40 MG/0.4 ML Syringe SC (14:02)
[2019-07-21] MEDS: Carvedilol 6.25 MG Tablet PO (14:02)
[2019-07-21] MEDS: Pantoprazole Sodium 40 MG Tablet PO (14:02)
[2019-07-21] MEDS: hydroCHLOROthiazide 25 MG Tablet PO (14:02)
== END 2019-07-21 12:50 | disposition home or self-care (01) ==
LOC: ED 17:55 → PCU 18:20
PROVIDERS: Admitting Provider Internal Medicine; Emergency Provider Emergency Medicine; PCP Family Medicine; Visit Provider Internal Medicine
DX: R07.89 Other chest pain (principal); I25.10 Atherosclerotic heart disease of native coronary artery without angina pectoris; E78.5 Hyperlipidemia, unspecified; I10 Essential (primary) hypertension; K21.9 Gastro-esophageal reflux disease without esophagitis; E11.40 Type 2 diabetes mellitus with diabetic neuropathy, unspecified; E66.9 Obesity, unspecified; Z68.33 Body mass index [BMI] 33.0-33.9, adult; Z95.5 Presence of coronary angioplasty implant and graft; Z79.82 Long term (current) use of aspirin; Z79.899 Other long term (current) drug therapy; Z79.84 Long term (current) use of oral hypoglycemic drugs; Z87.891 Personal history of nicotine dependence
CPT/HCPCS: 36415; 71045; 78452; 80048; 80061; 84443; 84484; 85025; 93005; 93017; 96360; 96361; 96372; 99218; 99251; 99285; A9500; J7030; A4216; G0378; G0463